=== PATIENT | female | born 1965 | race Caucasian/White ===

== ENCOUNTER 2021-08-04 01:00 | Emergency (ER) | payer OTHER ==
[~2021-08-04] VITALS: Ht 157.5 cm; Wt 47.6 kg
[2021-08-04 01:59] LABS: HEMATOCRIT 37.1 % (31.2-41.9); MEAN CORPUSCULAR HEMOGLOBIN 33.4 uug (24.7-32.8); MEAN CORPUSCULAR VOLUME 97.8 fL (75.5-95.3); PLATELET COUNT (AUTO) 240 K/uL (179-408)
[2021-08-04 02:04] LABS: *BILIRUBIN,URIN NEGATIVE (NEGATIVE); *CLARITY,URINE CLEAR (CLEAR); *COLOR,URINE LIGHT YELLOW (YELLOW); *KETONES,URINE TRACE (NEGATIVE); *UROBILINOGEN,URINE 0.2 E.U./dl (NORMAL); LEUKOCYTE ESTERASE ,URINE 2+ (NEGATIVE); NITRITE, URINE NEGATIVE (NEGATIVE); UGLUCOSE NEGATIVE (NEGATIVE)
[2021-08-04 02:08] LABS: CARBON DIOXIDE 19 mmol/L (21-32); CHLORIDE 85 mmol/L (98-107); CREATININE 0.7 mg/dL (0.6-1.3); GLUCOSE 85 mg/dL (74-106); POTASSIUM 3.2 mmol/L (3.5-5.1); UREA NITROGEN, BLOOD 5 mg/dL (7-18)
[2021-08-04 02:09] LABS: ETHANOL 192 MG/DL (0-0)
[2021-08-04 02:14] LABS: *BLOOD, URINE TRACE (NEGATIVE)
[2021-08-04 02:18] LABS: ALANINE AMINOTRANSFERASE 44 U/L (14-59); ALKALINE PHOSPHATASE 204 U/L (50-136); ASPARTATE AMINOTRANSFERASE 104 U/L (15-37); BILIRUBIN,DIRECT 0.1 mg/dL (0.0-0.2); BILIRUBIN,TOTAL 0.2 mg/dL (0.2-1.0); TOTAL PROTEIN, SERUM 6.8 g/dL (6.4-8.2)
[2021-08-04 02:20] LABS: ACETAMINOPHEN < 2.0 ug/mL (10-30)
[2021-08-04 02:22] LABS: THYROID STIMULATING HORMONE 3.287 mIU/mL (0.358-3.740)
[2021-08-04 02:37] LABS: *AMPHETAMINE, URINE NEGATIVE (NEGATIVE); *CANNABINOID, URINE NEGATIVE (NEGATIVE); *COCCAINE, URINE NEGATIVE (NEGATIVE); *OPIATE, URINE POSITIVE (NEGATIVE); *PHENCYCLIDINE SCREEN,URINE NEGATIVE (NEGATIVE)
--- NOTE | 2021-08-04 03:08 | NUR ---
called [employer] for a sitter. no sitter available at this time. pt states she wants to leave.
--- NOTE | 2021-08-04 04:00 | NUR ---
Patient discharged to home in stable condition. verbal after care instructions given by Dr Davies. Patient verbalizes understanding of instructions. Stressed follow up or return to ER for worsening s/s.
[2021-08-04 04:19] VITALS: BP 145/82
[2021-08-04 04:40] LABS: BACTERIA,URINE FEW /HPF (NONE SEEN); SQUAMOUS EPITHELIAL CELL,UR MODERATE /HPF (NONE SEEN)
== END 2021-08-04 04:06 | disposition home or self-care (01) ==
LOC: ER 01:06
DX: F19.10 Other psychoactive substance abuse, uncomplicated (principal); F10.10 Alcohol abuse, uncomplicated; Y90.6 Blood alcohol level of 120-199 mg/100 ml; F17.210 Nicotine dependence, cigarettes, uncomplicated; E11.9 Type 2 diabetes mellitus without complications; R94.31 Abnormal electrocardiogram [ECG] [EKG]
CPT/HCPCS: 36415; 70450; 71045; 84443; 84484; 85025; 85730; 87086; 93005; A4663; G0480